=== PATIENT | female | born 1925 | race Caucasian/White ===

== ENCOUNTER 2017-01-20 07:19 | Inpatient (IN) | payer MEDICARE, BC ==
--- NOTE | 2017-01-20 07:44 | EDM.PDOC ---
ED HPI GENERAL MEDICAL PROBLEM - General Chief Complaint: Chest Pain Stated Complaint: congestion, chest pain Time Seen by Provider: 01/20/17 07:42 Source of Information: Reports: Patient, RN, RN Notes Reviewed History Limitations: Reports: No Limitations - History of Present Illness INITIAL COMMENTS - FREE TEXT/NARRATIVE: Pt presents to the ER with c/o her heart pounding and racing. She states this first began about a week ago, coming and going. She admits to some chest pain while this is happening. She states she always feels tired, so she feels this is nothing new. She denies fever, chills, N/V/D. She states she has had a cold recently with a cough, she denies it being productive. She states she has history of mitral valve replacement. Onset: Gradual Duration: Waxing/Waning Location: Reports: Chest Quality: Reports: Throbbing Severity: Mild Improves with: Reports: None Worsens with: Reports: None Associated Symptoms: Reports: No Other Symptoms Chest Pain Score (Numeric/FACES): 2 - Related Data Allergies Allergy/AdvReac Type Severity Reaction Status Date / Time levofloxacin [From Levaquin] Allergy Cannot Verified 01/20/17 07:29 Remember risedronate sodium Allergy Cannot Verified 01/20/17 07:29 [From Actonel] Remember Sulfa (Sulfonamide Allergy Rash Verified 01/20/17 07:29 Antibiotics) Home Meds: Home Meds Aspirin 81 mg PO DAILY 11/10/13 [History] Hydrochlorothiazide 25 mg PO DAILY 11/10/13 [History] Losartan [Cozaar] 100 mg PO DAILY 11/10/13 [History] Simvastatin 20 mg PO BEDTIME 11/10/13 [History] Cyanocobalamin (Vitamin B-12) [B-12] 1,000 mcg PO DAILY 07/11/14 [History] Lutein/Minerals/Vit A,C & E [Ocuvite] 1 tab PO DAILY 07/11/14 [History] Omeprazole [Prilosec] 20 mg PO DAILY 07/11/14 [History] Calcium Carbonate/Vitamin D3 [Calcium 600 + Vit D 200] 1 each PO BID 10/28/15 [ History] Ibuprofen 400 mg PO Q6H PRN 10/28/15 [History] Sennosides/Docusate Sodium [Senna-S] 1 each PO BID 10/28/15 [History] Timolol Maleate [Timoptic-XE 0.5% Ophth Gel] 1 drop EYEBOTH BEDTIME 10/28/15 [ History] Acetaminophen/Codeine [Tylenol with Codeine No.3 300MG/30MG] 1 tab PO ASDIRECTED 12/02/15 [History] Amitriptyline [Elavil] 25 mg PO BEDTIME 12/02/15 [History] Penicillin V Potassium 500 mg PO ASDIRECTED 12/02/15 [History] amLODIPine [Norvasc] 2.5 mg PO DAILY 12/02/15 [History] Past Medical History HEENT History: Reports: Cataract, Impaired Vision, Macular Degeneration Cardiovascular History: Reports: Heart Valve Replacement, High Cholesterol, Hypertension Gastrointestinal History: Reports: Chronic Constipation, GERD Genitourinary History: Reports: UTI, 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: Musculoskeletal History: Reports: Arthritis Hematologic History: Reports: B12 Deficiency - Past Surgical History HEENT Surgical History: Reports: Cataract Surgery Cardiovascular Surgical History: Reports: Other (See Below) Social & Family History - Family History Family Medical History: Noncontributory - Tobacco Use Smoking Status *Q: Never Smoker Second Hand Smoke Exposure: No - Caffeine Use Caffeine Use: Reports: Coffee - Alcohol Use Days Per Week of Alcohol Use: 0 - Recreational Drug Use Recreational Drug Use: No - Living Situation & Occupation Living situation: Reports: , Assisted Living Occupation: Retired ED ROS GENERAL - Review of Systems Review Of Systems: ROS reveals no pertinent complaints other than HPI. ED EXAM, GENERAL - Physical Exam Exam: See Below Exam Limited By: No Limitations General Appearance: Alert, WD/WN, No Apparent Distress Eye Exam: Bilateral Eye: Normal Inspection Ears: Normal External Exam, Hearing Grossly Normal Nose: Normal Inspection Throat/Mouth: Normal Inspection, Normal Voice, No Airway Compromise Head: Atraumatic, Normocephalic Neck: Normal Inspection, Supple, Non-Tender, Full Range of Motion Respiratory/Chest: No Respiratory Distress Cardiovascular: Normal Peripheral Pulses, Regular Rate, Rhythm, No Edema, No Gallop, No JVD, No Murmur, No Rub Peripheral Pulses: 2+: Radial (L), Radial (R) GI/Abdominal: Normal Bowel Sounds, Soft, Non-Tender, No Organomegaly, No Distention, No Abnormal Bruit, No Mass (Female) Exam: Deferred Rectal (Female) Exam: Deferred Back Exam: Normal Inspection, Full Range of Motion Extremities: Normal Inspection, Normal Range of Motion, Non-Tender, No Pedal Edema, Normal Capillary Refill Neurological: Alert, Oriented, Normal Cognition, Normal Gait, No Motor/Sensory Deficits Psychiatric: Normal Affect, Normal Mood Skin Exam: Warm, Dry, Intact, Normal Color, No Rash Lymphatic: No Adenopathy EKG INTERPRETATION EKG Date: 01/20/17 Time: 08:30 Rhythm: NSR Rate (Beats/Min): 74 P-Wave: Present QRS: RBBB Comparison: NA - No Prior EKG Course - Vital Signs Last Recorded V/S: Last Vital Signs Temp 98.1 F 01/20/17 10:41 Pulse 76 01/20/17 10:41 Resp 18 01/20/17 10:41 BP 165/62 H 01/20/17 10:41 Pulse Ox 96 01/20/17 10:41 - Orders/Labs/Meds Orders: Active Orders 24 hr Category Date Time Status EKG Documentation Completion [RC] STAT Care 01/20/17 07:30 Active Chest 1V Frontal [CR] Stat Exams 01/20/17 07:31 Taken Chest w Cont [CT] Urgent Exams 01/20/17 09:35 Taken Labs: Laboratory Tests 01/20/17 01/20/17 01/20/17 Range/Units 07:38 07:38 07:38 WBC 4.9 L (5.0-10.0) 10^3/uL RBC 3.71 L (4.2-5.4) 10^6/uL Hgb 10.7 L (12.0-16.0) g/dL Hct 33.8 L (37.0-47.0) % MCV 91.1 (80-100) fL MCH 28.8 (27.0-34.0) pg MCHC 31.7 L (33.0-35.0) g/dL Plt Count 176 (150-450) 10^3/uL Neut % (Auto) 57.8 (42.2-75.2) % Lymph % (Auto) 18.4 L (20.5-50.1) % Gates % (Auto) 15.4 H (2-8) % Eos % (Auto) 7.6 H (1.0-3.0) % Baso % (Auto) 0.8 (0.0-1.0) % D-Dimer, Quantitative 546 H (0-400) ng/mL Sodium 141 (135-145) mmol/L Potassium 3.4 L (3.6-5.0) mmol/L Chloride 102 (101-111) mmol/L Carbon Dioxide 28.0 (21.0-31.0) mmol/L Anion Gap 14.4 BUN 20 H (7-18) mg/dL Creatinine 1.1 (0.6-1.3) mg/dL Est Cr Clr Drug Dosing 29.94 mL/min Estimated GFR (MDRD) 47 BUN/Creatinine Ratio 18.18 Glucose 103 (74-105) mg/dL Calcium 8.7 (8.4-10.2) mg/dl Total Bilirubin 0.4 (0.2-1.0) mg/dL AST 28 (10-42) IU/L ALT 17 (10-60) IU/L Alkaline Phosphatase 81 (42-121) IU/L Troponin I < 0.02 (0.00-0.02) ng/ml B-Natriuretic Peptide (0-100) pg/ml Total Protein 6.9 (6.7-8.2) g/dl Albumin 3.9 (3.2-5.5) g/dl Globulin 3.0 Albumin/Globulin Ratio 1.30 Urine Color (YELLOW) Urine Appearance (CLEAR) Urine pH (5.0-9.0) Ur Specific [place] (1.005-1.030) Urine Protein (NEGATIVE) Urine Glucose (UA) (NEGATIVE) Urine Ketones (NEGATIVE) Urine Occult Blood (NEGATIVE) Urine Nitrite (NEGATIVE) Urine Bilirubin (NEGATIVE) Urine Urobilinogen (0.2-1.0) mg/dL Ur Leukocyte Esterase (NEGATIVE) Urine RBC /HPF Urine WBC (0-5/HPF) /HPF Ur Epithelial Cells /HPF Urine Bacteria (0-FEW/HPF) /HPF 01/20/17 01/20/17 Range/Units 07:38 09:23 WBC (5.0-10.0) 10^3/uL RBC (4.2-5.4) 10^6/uL Hgb (12.0-16.0) g/dL Hct (37.0-47.0) % MCV (80-100) fL MCH (27.0-34.0) pg MCHC (33.0-35.0) g/dL Plt Count (150-450) 10^3/uL Neut % (Auto) (42.2-75.2) % Lymph % (Auto) (20.5-50.1) % Gates % (Auto) (2-8) % Eos % (Auto) (1.0-3.0) % Baso % (Auto) (0.0-1.0) % D-Dimer, Quantitative (0-400) ng/mL Sodium (135-145) mmol/L Potassium (3.6-5.0) mmol/L Chloride (101-111) mmol/L Carbon Dioxide (21.0-31.0) mmol/L Anion Gap BUN (7-18) mg/dL Creatinine (0.6-1.3) mg/dL Est Cr Clr Drug Dosing mL/min Estimated GFR (MDRD) BUN/Creatinine Ratio Glucose (74-105) mg/dL Calcium (8.4-10.2) mg/dl Total Bilirubin (0.2-1.0) mg/dL AST (10-42) IU/L ALT (10-60) IU/L Alkaline Phosphatase (42-121) IU/L Troponin I (0.00-0.02) ng/ml B-Natriuretic Peptide 265 H (0-100) pg/ml Total Protein (6.7-8.2) g/dl Albumin (3.2-5.5) g/dl Globulin Albumin/Globulin Ratio Urine Color Straw (YELLOW) Urine Appearance Clear (CLEAR) Urine pH 8.5 (5.0-9.0) Ur Specific [place] 1.015 (1.005-1.030) Urine Protein Negative (NEGATIVE) Urine Glucose (UA) Negative (NEGATIVE) Urine Ketones Negative (NEGATIVE) Urine Occult Blood Trace-intact H (NEGATIVE) Urine Nitrite Negative (NEGATIVE) Urine Bilirubin Negative (NEGATIVE) Urine Urobilinogen 0.2 (0.2-1.0) mg/dL Ur Leukocyte Esterase Negative (NEGATIVE) Urine RBC Not seen /HPF Urine WBC 0-5 (0-5/HPF) /HPF Ur Epithelial Cells Rare /HPF Urine Bacteria Rare (0-FEW/HPF) /HPF Meds: Medications Discontinued Medications Generic Name Dose Route Start Last Admin Trade Name Freq PRN Reason Stop Dose Admin Furosemide 40 mg 01/20/17 09:18 01/20/17 09:29 Lasix IVPUSH 01/20/17 09:19 40 mg NOW ONE Administration Iopamidol 100 ml 01/20/17 09:55 Isovue-370 (76%) IVPUSH 01/20/17 09:56 ONETIME ONE - Radiology Interpretation Free Text/Narrative:: Chest x-ray: No acute findings See rad report Departure - Departure Time of Disposition: 11:33 Disposition: Admitted As Inpatient 68 Condition: Fair Clinical Impression: D-dimer, elevated Chest pain Qualifiers: Chest pain type: unspecified Qualified Code(s): R07.9 - Chest pain, unspecified Pneumonia Qualifiers: Pneumonia type: due to unspecified organism Laterality: right Lung location: upper lobe of lung Qualified Code(s): J18.1 - Lobar pneumonia, unspecified organism Referrals: Jai Barroso MD [Primary Care Provider] - Forms: ED Department Discharge - My Orders Last 24 Hours: My Active Orders 01/20/17 07:30 EKG Documentation Completion [RC] STAT 01/20/17 07:31 Chest 1V Frontal [CR] Stat 01/20/17 09:35 Chest w Cont [CT] Urgent - Assessment/Plan Last 24 Hours: My Active Orders 01/20/17 07:30 EKG Documentation Completion [RC] STAT 01/20/17 07:31 Chest 1V Frontal [CR] Stat 01/20/17 09:35 Chest w Cont [CT] Urgent
[2017-01-20 08:05] LABS: CHLORIDE,CL 102 mmol/L (101-111); SODIUM,NA 141 mmol/L (135-145)
[2017-01-20] MEDS ORDERED: Furosemide 40 MG/4 ML VIAL IVPUSH ONE (09:18)
[2017-01-20] MEDS ORDERED: Iopamidol 755 Mg/ML 100 ML Bottle IVPUSH ONE (09:55)
[2017-01-20] MEDS ORDERED: Acetaminophen/Codeine 300-30 MG Tab PO SCH (13:00)
[2017-01-20] MEDS: Potassium Chloride 10 MEQ Tab.ER PO SCH ×2 (13:32→17:09)
[2017-01-20] MEDS: Heparin Sodium 5,000 Units/ML Vial SUBCUT SCH ×2 (13:33→21:16)
[2017-01-20] MEDS: Azithromycin 500 MG in Sodium Chloride 0.9% 250 ML IV SCH (13:33)
[2017-01-20] MEDS: Hydrochlorothiazide 25 MG Tab PO SCH (14:00)
[2017-01-20] MEDS: Aspirin 81 MG Tab.Chew PO SCH (14:00)
[2017-01-20] MEDS: Calcium Carbonate/Vitamin D3 1250 MG-200 Unit Tab PO SCH ×2 (14:00→21:14)
[2017-01-20] MEDS: Omeprazole 20 MG Cap.CR PO SCH (14:01)
[2017-01-20] MEDS: amLODIPine 5 MG Tab PO SCH (14:01)
[2017-01-20] MEDS: Cyanocobalamin (Vitamin B12) 100 MCG Tab PO SCH (14:01)
[2017-01-20] MEDS: cefTRIAXone 1 GM in Sodium Chloride 0.9% 50 ML IV SCH (14:50)
--- NOTE | 2017-01-20 15:14 | HP ---
CHIEF COMPLAINT: Palpitations, chest discomfort, cough with sputum, cold-like symptoms. HISTORY OF PRESENTING ILLNESS: Mrs. Jesse Nichole is an 89-year-old female with medical history significant for hypertension; hyperlipidemia, status post aortic valve replaced with a bioprosthetic valve; history of recurrent urinary tract infection; osteoarthritis, presented to the ER with complaints of increasing cough and chest discomfort with palpitations. Further evaluation showed evidence of possible infiltrates on the CT scan of the chest, requiring admission to the hospital. At this time, the patient claims that for the last 4 to 5 days, the patient has been having cold-like symptoms, which she was having runny nose and stuffy nose and also cough with clear sputum, but this morning, the patient started having some chest discomfort and palpitations like symptoms, which made her come to the emergency room. She described the chest discomfort as dull in nature, 3 to 4/10 in intensity, no clear aggravating factors, no clear relieving factors, intermittent in nature, lasting only for few seconds. Aggravated on deep breathing and coughing, not associated with any nausea or vomiting. Denies any abdominal pain. Denies any diarrhea. No sick contacts. No recent travel. No fevers or chills noted at home. The patient denied any history of chest pains on exertion, but has dyspnea on exertion. No history of orthopnea or paroxysmal nocturnal dyspnea. The patient denied any history of hematemesis, hematochezia, or melanotic stools. Normal bowel and bladder habits otherwise. REVIEW OF SYSTEMS: A complete review of system including skin, ear, nose, and throat, cardiovascular system, respiratory system, gastrointestinal system, genitourinary system, Hematology, Oncology, Neurology, allergy, Immunology were all evaluated and were negative except for the above-said notes. PAST MEDICAL HISTORY: Significant for: 1. Hypertension. 2. Hyperlipidemia, status post aortic valve replaced with a bioprosthetic valve. 3. Recurrent urinary tract infection. 4. Osteoarthritis. PAST SURGICAL HISTORY: Significant for: 1. Laparoscopic appendicectomy. 2. Hysterectomy. 3. Cholecystectomy. FAMILY HISTORY: Significant for cancer and diabetes in her sister and cancer in her other sister. SOCIAL HISTORY: The patient denied any history of smoking tobacco. No history of alcohol intake. ALLERGIES: The patient noted to have allergies to Levaquin, sulfa antibiotics, and risedronate sodium. PHYSICAL EXAMINATION: VITAL SIGNS: Temperature of 98.7, pulse of 78, blood pressure 155/81, respiratory rate of 20, saturating at 99% on room air. GENERAL APPEARANCE: Patient is well oriented to time, place, and person. Follows commands spontaneously. CARDIOVASCULAR SYSTEM: S1, S2 heard with normal intensity. No gallops. RESPIRATORY SYSTEM: Clear to auscultation bilaterally. No wheeze. No crepitations. ABDOMEN: Soft. Bowel sounds are positive. Nontender. No rigidity. EXTREMITIES: No edema in bilateral lower extremities. NEUROLOGY: No gross focal neurological deficit. HOME MEDICATIONS: 1. Elavil 25 mg daily. 2. Hydrochlorothiazide 25 mg daily. 3. Cozaar 100 mg daily. 4. Omeprazole 20 mg daily. 5. Simvastatin 20 mg daily. 6. Norvasc 2.5 mg daily. 7. Tessalon Perles as needed. 8. Aspirin 81 mg daily. 9. Advil as needed. 10.Multivitamin one tablet daily. LABORATORY DATA: 1. WBC 4.9, hemoglobin 10.7, hematocrit 33.8, platelet count 176. 2. D-dimer 546. 3. Sodium 141, potassium 3.4, chloride 102, bicarb 28, BUN 20, creatinine 1.1, glucose 103, AST 28, ALT 17, alkaline phosphatase 81, brain natriuretic peptide 265, troponin less than 0.02. 4. Urinalysis, trace occult blood. ASSESSMENT: 1. Possible pneumonia. 2. Chest discomfort. 3. Hypertension. 4. Hyperlipidemia. 5. Status post bioprosthetic aortic valve replaced in the past. PLAN: 1. Possible pneumonia. Patient has been having this cold-like symptoms for the last 4 to 5 days. The patient had a CT scan of the chest done in the emergency room, which showed evidence of infiltrative process, possible pneumonitis, possible pneumonia. The patient will be started on antibiotics. She is noted to have allergies to Levaquin. We will have her on ceftriaxone and Zithromax. Obtain sputum cultures, blood cultures, and titrate the antibiotics. No evidence of sepsis identified at this time. The patient was noted to have elevated D-dimer. Needing a CT scan of the chest with PE protocol, but no evidence of PE noted at this time. 2. Hypokalemia, this is mild in nature. We will replace with oral potassium chloride. This could be resulting from her hydrochlorothiazide. 3. Palpitations. We will have her on telemetry unit at this time in the next 24 hours to make sure patient does not have any abnormal rhythms, current the hypokalemia. 4. Elevated BNP. No clinical signs suggestive of congestive heart failure exacerbation. We will recheck a BNP in a.m. We will closely follow. 5. Anemia. The patient's hemoglobin is down to 10.7. She denied any hematemesis hematochezia, or melanotic stools. Recheck a CBC in a.m. 6. Deep venous thrombosis prophylaxis. We will have her on heparin for deep venous thrombosis prophylaxis. 7. Code status. The patient wants to be do not resuscitate/do not intubate. 8. Discussed with ER physician regarding the plan of care. Reviewed the labs and medications. Reviewed the old charts. [facility] /[id number]
[2017-01-20] MEDS: Simvastatin 10 MG Tab PO SCH (21:13)
[2017-01-20] MEDS: Amitriptyline 25 MG Tab PO SCH (21:14)
[2017-01-20] MEDS ORDERED: Sodium Chloride 0.9% 10 ML Syringe FLUSH PRN (22:59)
[2017-01-21] MEDS: Heparin Sodium 5,000 Units/ML Vial SUBCUT SCH ×3 (05:49→21:47)
[2017-01-21] MEDS: Omeprazole 20 MG Cap.CR PO SCH (05:55)
[2017-01-21] MEDS ORDERED: Benzonatate 100 MG Cap PO PRN (09:32)
[2017-01-21] MEDS: Cyanocobalamin (Vitamin B12) 100 MCG Tab PO SCH (10:17)
[2017-01-21] MEDS: Potassium Chloride 10 MEQ Tab.ER PO SCH ×2 (10:20→19:41)
[2017-01-21] MEDS: Lutein/Minerals/Vit A,C & E Tab PO SCH (10:21)
[2017-01-21] MEDS: Calcium Carbonate/Vitamin D3 1250 MG-200 Unit Tab PO SCH ×2 (10:22→20:57)
[2017-01-21] MEDS: Aspirin 81 MG Tab.Chew PO SCH (10:23)
[2017-01-21] MEDS: Hydrochlorothiazide 25 MG Tab PO SCH (10:23)
[2017-01-21] MEDS: Losartan 50 MG Tab PO SCH (10:24)
[2017-01-21] MEDS: amLODIPine 5 MG Tab PO SCH (10:25)
[2017-01-21] MEDS: Albuterol/Ipratropium 3.0-0.5 MG/3 ML Neb Soln NEB SCH ×3 (11:19→20:10)
[2017-01-21] MEDS: cefTRIAXone 1 GM in Sodium Chloride 0.9% 50 ML IV SCH (13:22)
[2017-01-21] MEDS: TIMOLOL MALEATE 0.5% EYEBOTH SCH ×2 (13:22→20:59)
[2017-01-21] MEDS: EYE EYEBOTH SCH ×2 (13:22→20:59)
[2017-01-21] MEDS: Azithromycin 500 MG in Sodium Chloride 0.9% 250 ML IV SCH (13:48)
--- NOTE | 2017-01-21 18:39 | PCM.PN ---
- General Info Date of Service: 01/21/17 Subjective Update: Patient is an 89 year old female admitted due to Pneumonia. feeling better today. breathing ok. denies any palpitations and chest pain overnight. tolerating diet. continues to cough expectorating phlegm. no hemoptysis. - Patient Data Vitals - Most Recent: Last Vital Signs Temp 36.7 C 01/21/17 14:50 Pulse 75 01/21/17 15:21 Resp 16 01/21/17 15:21 BP 154/60 H 01/21/17 14:50 Pulse Ox 99 01/21/17 14:50 Weight - Most Recent: 74.661 kg I&O - Last 24 Hours: Intake & Output 01/21/17 01/21/17 01/21/17 06:59 14:59 22:59 Intake Total 350 1190 240 Output Total 800 400 600 Balance -450 790 -360 Lab Results Last 24 Hours: Laboratory Results - last 24 hr 01/20/17 01/21/17 01/21/17 Range/Units 18:11 06:08 06:08 WBC 5.5 (5.0-10.0) 10^3/uL RBC 3.56 L (4.2-5.4) 10^6/uL Hgb 10.2 L (12.0-16.0) g/dL Hct 32.0 L (37.0-47.0) % MCV 89.9 (80-100) fL MCH 28.7 (27.0-34.0) pg MCHC 31.9 L (33.0-35.0) g/dL Plt Count 196 (150-450) 10^3/uL Sodium 137 (135-145) mmol/L Potassium 4.0 (3.6-5.0) mmol/L Chloride 101 (101-111) mmol/L Carbon Dioxide 26.0 (21.0-31.0) mmol/L Anion Gap 14.0 BUN 22 H (7-18) mg/dL Creatinine 1.0 (0.6-1.3) mg/dL Est Cr Clr Drug Dosing 32.93 mL/min Estimated GFR (MDRD) 52 Glucose 89 (74-105) mg/dL Calcium 8.9 (8.4-10.2) mg/dl Troponin I 0.03 H* (0.00-0.02) ng/ml 01/21/17 Range/Units 06:08 WBC (5.0-10.0) 10^3/uL RBC (4.2-5.4) 10^6/uL Hgb (12.0-16.0) g/dL Hct (37.0-47.0) % MCV (80-100) fL MCH (27.0-34.0) pg MCHC (33.0-35.0) g/dL Plt Count (150-450) 10^3/uL Sodium (135-145) mmol/L Potassium (3.6-5.0) mmol/L Chloride (101-111) mmol/L Carbon Dioxide (21.0-31.0) mmol/L Anion Gap BUN (7-18) mg/dL Creatinine (0.6-1.3) mg/dL Est Cr Clr Drug Dosing mL/min Estimated GFR (MDRD) Glucose (74-105) mg/dL Calcium (8.4-10.2) mg/dl Troponin I 0.02 (0.00-0.02) ng/ml Pool Results Last 24 Hours: Microbiology 01/20/17 13:11 Aerobic Blood Culture - Preliminary Blood - Venous - Lab Draw NO GROWTH AFTER 1 DAY Anaerobic Blood Culture - Preliminary NO GROWTH AFTER 1 DAY 01/20/17 13:11 Aerobic Blood Culture - Preliminary Blood - Venous NO GROWTH AFTER 1 DAY Anaerobic Blood Culture - Preliminary NO GROWTH AFTER 1 DAY 01/20/17 18:05 Gram Stain - Final Sputum - Expectorated Med Orders - Current: Current Medications Acetaminophen/Codeine Phosphate (Tylenol With Codeine No.3 300mg/30mg) 1 tab PO ASDIRECTED [facility] Albuterol/Ipratropium (Duoneb 3.0-0.5 Mg/3 Ml) 3 ml NEB Q6HRRT [facility] Last Admin: 01/21/17 15:19 Dose: 3 ml Amitriptyline HCl (Elavil) 25 mg PO BEDTIME [facility] Last Admin: 01/20/17 21:14 Dose: 25 mg Amlodipine Besylate (Norvasc) 2.5 mg PO DAILY [facility] Last Admin: 01/21/17 10:25 Dose: 2.5 mg Amlodipine Besylate (Norvasc) 2.5 mg PO ONETIME ONE Stop: 01/22/17 17:56 Aspirin (Aspirin) 81 mg PO DAILY [facility] Last Admin: 01/21/17 10:23 Dose: 81 mg Benzonatate (Tessalon Perles) 200 mg PO TID PRN PRN Reason: Cough Calcium Carbonate (Calcium Carbonate/Vitamin D 1250 Mg-200 Unit) 1 tab PO BID [facility] Last Admin: 01/21/17 10:22 Dose: 1 tab Cyanocobalamin (Vitamin B12) 1,000 mcg PO DAILY [facility] Last Admin: 01/21/17 10:17 Dose: 1,000 mcg Guaifenesin (Robitussin) 100 mg PO Q6H PRN PRN Reason: Cough Heparin Sodium (Porcine) (Heparin Sodium) 5,000 units SUBCUT Q8HR [facility] Last Admin: 01/21/17 13:22 Dose: 5,000 units Hydrochlorothiazide (Hydrochlorothiazide) 25 mg PO DAILY [facility] Last Admin: 01/21/17 10:23 Dose: 25 mg Azithromycin 500 mg/ Sodium (Chloride) 250 mls @ 250 mls/hr IV Q24H [facility] Last Admin: 01/21/17 13:48 Dose: 100 mls/hr Ceftriaxone Sodium 1 gm/ (Sodium Chloride) 50 mls @ 100 mls/hr IV Q24H [facility] Last Admin: 01/21/17 13:22 Dose: 100 mls/hr Losartan Potassium (Cozaar) 100 mg PO DAILY [facility] Last Admin: 01/21/17 10:24 Dose: 100 mg Multivitamins/Minerals (I-Kushal) 1 each PO DAILY [facility] Last Admin: 01/21/17 10:21 Dose: 1 each Omeprazole (Omeprazole) 20 mg PO ACBREAKFAST [facility] Last Admin: 01/21/17 05:55 Dose: 20 mg Timolol Maleate 0.5% Eye DropsPt's Own Med 0 each EYEBOTH BEDTIME [facility] Last Admin: 01/21/17 13:22 Dose: Not Given Potassium Chloride (Klor-Con 10) 20 meq PO BIDMEALS [facility] Last Admin: 01/21/17 10:20 Dose: 20 meq Senna/Docusate Sodium (Senna Plus) 1 tab PO BID [facility] Last Admin: 01/21/17 10:24 Dose: 1 tab Simvastatin (Zocor) 20 mg PO BEDTIME [facility] Last Admin: 01/20/17 21:13 Dose: 20 mg Sodium Chloride (Saline Flush) 10 ml FLUSH ASDIRECTED PRN PRN Reason: Keep Vein Open Last Admin: 01/21/17 10:27 Dose: 10 ml Discontinued Medications Furosemide (Lasix) 40 mg IVPUSH NOW ONE Stop: 01/20/17 09:19 Last Admin: 01/20/17 09:29 Dose: 40 mg Iopamidol (Isovue-370 (76%)) 100 ml IVPUSH ONETIME ONE Stop: 01/20/17 09:56 Last Admin: 01/20/17 12:57 Dose: 64 ml - Exam General: Alert, Oriented Lungs: Crackles (fine, crackle bilaterally) GI/Abdominal Exam: Normal Bowel Sounds, Soft - Problem List Review Problem List Initiated/Reviewed/Updated: Yes - My Orders Last 24 Hours: My Active Orders 01/21/17 09:30 Albuterol/Ipratropium [DuoNeb 3.0-0.5 MG/3 ML] 3 ml NEB Q6HRRT 01/21/17 09:32 RT Aerosol Therapy [RC] ,,19, Benzonatate [Tessalon Perles] 200 mg PO TID PRN 01/21/17 09:33 guaiFENesin [Robitussin] 100 mg PO Q6H PRN 01/21/17 10:46 Flutter Valve Therapy [RT Chest Physiotherapy] [RC] ASDIRECTED 01/22/17 17:55 amLODIPine [Norvasc] 2.5 mg PO ONETIME ONE - Plan Plan:: palpitations - telemetry no significant events - troponin normal - monitor electrolytes Pnuemonia - clinically better and afebrile - awaiting final sputum culture - continue for now Rocephin and Azithromycin - incentive spirometry and flutter valve elevated BNP - given a dose of lasix - clinically feeling better - no history of CHF Hypertension - on amlodipine anemia - stable - no signs of bleeding
[2017-01-21] MEDS ORDERED: amLODIPine 5 MG Tab PO ONE (19:15)
[2017-01-21] MEDS: Amitriptyline 25 MG Tab PO SCH (20:57)
[2017-01-21] MEDS: Simvastatin 10 MG Tab PO SCH (20:58)
[2017-01-22] MEDS: Albuterol/Ipratropium 3.0-0.5 MG/3 ML Neb Soln NEB SCH ×3 (01:12→13:28)
[2017-01-22] MEDS: guaiFENesin 100 MG/5 ML Soln 5 ML UD Cup PO PRN ×2 (05:05→10:49)
[2017-01-22] MEDS: Omeprazole 20 MG Cap.CR PO SCH (06:31)
[2017-01-22] MEDS: Heparin Sodium 5,000 Units/ML Vial SUBCUT SCH ×2 (06:32→15:55)
[2017-01-22] MEDS: amLODIPine 5 MG Tab PO SCH (08:54)
[2017-01-22] MEDS: Hydrochlorothiazide 25 MG Tab PO SCH (08:54)
[2017-01-22] MEDS: Potassium Chloride 10 MEQ Tab.ER PO SCH (08:55)
[2017-01-22] MEDS: Aspirin 81 MG Tab.Chew PO SCH (08:55)
[2017-01-22] MEDS: Calcium Carbonate/Vitamin D3 1250 MG-200 Unit Tab PO SCH (08:55)
[2017-01-22] MEDS: Losartan 50 MG Tab PO SCH (08:55)
[2017-01-22] MEDS: Lutein/Minerals/Vit A,C & E Tab PO SCH (08:55)
[2017-01-22 09:01] VITALS: BP 131/73
[2017-01-22] MEDS ORDERED: Amoxicillin/Clavulanate K 875-125 MG Tab PO SCH (10:00)
[2017-01-22] MEDS: Cyanocobalamin (Vitamin B12) 100 MCG Tab PO SCH (10:47)
[2017-01-22] MEDS ORDERED: amLODIPine 5 MG Tab PO ONE (17:55)
--- NOTE | 2017-01-24 02:02 | DISCH ---
FINAL DIAGNOSES: 1. Right upper lobe pneumonia. 2. Palpitations. 3. Chronic anemia. BRIEF HISTORY AND PHYSICAL EXAMINATION: The patient is an 89-year-old female who was admitted because of cold-like symptoms and cough productive of clear sputum with chest discomfort and palpitations. CAT scan showing infiltrates. The patient has history of hypertension, hyperlipidemia, and history of bioprosthetic aortic valve replacement. Documented physical exam on admission: Vital Signs: Blood pressure 155/81, heart rate of 78 beats per minute, respirations 20 breaths per minute, oxygen saturation 99% on room air, and temperature 98.7. Chest: No crepitations noted on chest auscultation. Extremities: No edema on the extremities. LAB AND DIAGNOSTIC DATA: Workup done during hospitalization showed no growth on blood cultures. Normal reny and moderate amount of yeast in sputum culture. Initial CBC showed hemoglobin of 10.7 and WBC of 4.9 with no left shift. Initial potassium 3.4, and the repeat was 4.0. CAT scan done 01/20/2017 showed no pulmonary embolism, aortic valve stent noted, inferior left thyroid/parathyroid nodule, a small infiltrate noted in the right upper lobe, and diverticulosis. HOSPITAL COURSE: The patient was admitted in medical-surgical bed. Given the palpitations, she was hooked to telemetry. She was started on ceftriaxone and Zithromax. Workup was done, No evidence of sepsis. She was noted to be hypokalemic on admission, this was just replaced. At some point, she had palpitations, and troponins were monitored. DVT prophylaxis done via heparin subcutaneously every 8 hours. During her stay, she remained afebrile and responded well with IV antibiotics. This was shifted to p.o. Augmentin, which she tolerated well. On the day of discharge, no recurrence of the chest pain or palpitations. VITAL SIGNS ON DISCHARGE: Blood pressure 131/73, heart rate of 79 beats per minute, respirations 20 breaths per minute, and oxygen saturation 99% on room air. DISCHARGE INSTRUCTIONS: To complete and finish the antibiotic. Monitor for signs of intolerance. Continue with flutter valve at home. Follow up with primary care provider within a week with repeat blood work to follow the potassium. To come back to the emergency room with emergent health concerns. [facility] /[id number] MTDD
--- NOTE | 2017-03-15 08:15 | EKG ---
01/20/2017- EDWINA HAWKINS - EKG done on an 89-year-old female, showing sinus rhythm with heart rate of 74 beats per minute, right bundle-branch block noted. [facility] /[id number]
== END 2017-01-22 14:15 | disposition home or self-care (01) | DRG 194 ==
LOC: DL.ED 07:19 → DL.MS 11:51 → UNDOADMIN 11:51 → DL.ED 11:53 → DL.MS 12:53
PROVIDERS: ADMIT Internal Medicine; ATTEND Internal Medicine
DX: J18.9 Pneumonia, unspecified organism (principal); R79.1 Abnormal coagulation profile; E53.0 Riboflavin deficiency; E78.00 Pure hypercholesterolemia, unspecified; I10 Essential (primary) hypertension; E78.5 Hyperlipidemia, unspecified; Z95.4 Presence of other heart-valve replacement; E53.8 Deficiency of other specified B group vitamins; H35.30 Unspecified macular degeneration; Z95.2 Presence of prosthetic heart valve; E87.6 Hypokalemia; R00.2 Palpitations; D64.9 Anemia, unspecified; Z66 Do not resuscitate; K59.09 Other constipation; K21.9 Gastro-esophageal reflux disease without esophagitis; M19.90 Unspecified osteoarthritis, unspecified site; Z88.1 Allergy status to other antibiotic agents; Z88.2 Allergy status to sulfonamides; Z88.8 Allergy status to other drugs, medicaments and biological substances; Z79.82 Long term (current) use of aspirin; Z79.899 Other long term (current) drug therapy
CPT/HCPCS: 36415; 71010; 71260; 80053; 81001; 83880; 84484; 85025; 85379; 93005; 93010; 96374; 99284; 99285; J1940; Q9967; 80048; 85027; 87040; 87070; 87205; 94640; 94667; A9270-GY; J0456; J0696; J1644; J7050